=== PATIENT | male | born 1950 | race African-American/Black ===

== ENCOUNTER 2017-01-16 12:27 | Emergency (ER) | payer SELFPAY ==
[~2017-01-16] VITALS: Ht 172.7 cm; Wt 70.0 kg
[2017-01-16 12:33] VITALS: BP 117/90
== END 2017-01-16 17:04 | disposition left against medical advice (07) ==
LOC: ER 13:15
DX: F10.20 Alcohol dependence, uncomplicated (principal); Z88.0 Allergy status to penicillin; Y90.9 Presence of alcohol in blood, level not specified
CPT/HCPCS: 99283

== ENCOUNTER 2018-11-19 20:00 | Emergency (ER) | payer MEDICARE, OTHER ==
[~2018-11-19] VITALS: Ht 188 cm; Wt 69.0 kg
[~2018-11-19 20:00] MED LIST: DIPH25CA83 PO; HYDR12.529 PO
[2018-11-20] MEDS ORDERED: HYDROCODONE/ACETAMINOPHEN 5/325MG TABLET PO ONE (00:30)
[2018-11-20] MEDS ORDERED: ACETAMINOPHEN 325MG TABLET PO ONE (15:45)
[2018-11-20 16:16] LABS: HEMATOCRIT 37.4 % (42.0-52.0); HEMOGLOBIN 12.2 g/dL (14.0-18.0); MEAN CORPUSCULAR HEMOGLOBIN 27.8 pg (28.0-32.0); MEAN CORPUSCULAR VOLUME 85.5 fL (80.0-94.0); PLATELET 397 x1000/uL (130-400); RED BLOOD CELL COUNT 4.37 mill/uL (4.7-6.1); RED CELL DISTRIBUTION WIDTH 17.9 % (11.6-14.6)
[2018-11-20 16:20] LABS: CHLORIDE 106 mEq/L (98-107)
[2018-11-20 20:56] VITALS: BP 172/117
== END 2018-11-20 21:47 ==
LOC: ER 20:33
DX: M79.605 Pain in left leg (principal); F10.20 Alcohol dependence, uncomplicated; I10 Essential (primary) hypertension; F12.10 Cannabis abuse, uncomplicated; Z59.0 Homelessness; Z88.0 Allergy status to penicillin; Z79.899 Other long term (current) drug therapy; Y90.9 Presence of alcohol in blood, level not specified
CPT/HCPCS: 36415; 83735; 85027; 99283

== ENCOUNTER 2021-03-04 18:47 | Emergency (ER) | payer MEDICARE, OTHER ==
[~2021-03-04] VITALS: Ht 167.6 cm; Wt 52.0 kg
[2021-03-04] MEDS ORDERED: PERMETHRIN 5% CREAM 60GM TOP ONE (21:30)
[2021-03-05] MEDS ORDERED: ACETAMINOPHEN WITH CODEINE 300/30MG TABLET PO ONE (13:15)
[2021-03-05] MEDS ORDERED: GUAIFENESIN 200MG/10ML SUGAR FREE UDC PO PRN (13:30)
[2021-03-05] MEDS ORDERED: CLONIDINE 0.1MG TABLET PO PRN (13:30)
[2021-03-05] MEDS ORDERED: DOCUSATE SODIUM 100MG CAPSULE PO PRN (13:30)
[2021-03-05] MEDS ORDERED: MAGNESIUM/ALUMINUM HYDROXIDE/SIMETHICONE 30ML UDC PO PRN (13:30)
[2021-03-05] MEDS ORDERED: ONDANSETRON HCL 4MG/2ML INJ IV PRN (13:30)
[2021-03-05] MEDS ORDERED: HYDROCODONE/ACETAMINOPHEN 5/325MG TABLET PO PRN (13:30)
[2021-03-05] MEDS ORDERED: ACETAMINOPHEN 325MG TABLET PO PRN (13:30)
[2021-03-05] MEDS ORDERED: AMLODIPINE 10MG TABLET PO SCH (13:30)
[2021-03-05] MEDS ORDERED: PERMETHRIN 5% CREAM 60GM TOP NR (14:00)
[2021-03-05 14:57] LABS: CHLORIDE 106 mEq/L (98-107)
[2021-03-05 14:58] LABS: HEMATOCRIT. 37.6 % (42.0-52.0); MEAN CORPUSCULAR HEMOGLOBIN 27.3 pg (28.0-32.0); MEAN CORPUSCULAR VOLUME 85.4 fL (80.0-94.0); MEAN PLATELET VOLUME 7.8 fl (7.4-10.4); PLATELET 469 x1000/uL (130-400); RED BLOOD CELL COUNT 4.41 mill/uL (4.7-6.1); RED CELL DISTRIBUTION WIDTH 14.3 % (11.6-14.6)
[2021-03-05 15:44] LABS: PLATELET ESTIMATE INCREASED
[2021-03-05] MEDS ORDERED: ENOXAPARIN 40MG/0.4ML SYR SUBCUT SCH (20:00)
[2021-03-05 20:39] VITALS: BP 103/83
== END 2021-03-05 20:45 ==
LOC: ER 18:47 → EDBEDREQ 03-05 13:19 → EDBEDREQTM 03-05 13:19 → EDBEDREQSVC 03-05 13:19 → CANBEDREQ 03-05 17:36 → ER 03-05 20:45
DX: R53.1 Weakness (principal); B85.0 Pediculosis due to Pediculus humanus capitis; J44.9 Chronic obstructive pulmonary disease, unspecified; I10 Essential (primary) hypertension; Z88.0 Allergy status to penicillin; Z79.899 Other long term (current) drug therapy; F32.9 Major depressive disorder, single episode, unspecified
CPT/HCPCS: 36415; 80053; 85025; 96372; 99285; J1650